=== PATIENT | female | born 1955 | race Two or more races ===

== ENCOUNTER 2018-09-06 07:01 | Day surgery (SDC) | payer OTHER ==
[2018-09-06] MEDS ORDERED: PROPOFOL 40 ML (08:40)
[2018-09-06] MEDS ORDERED: LIDOCAINE 2% (SDV) 5 ML INJ (08:40)
[2018-09-06] MEDS ORDERED: ONDANSETRON 4 MG INJ IV (09:00)
[2018-09-06] MEDS ORDERED: EPHEDrine 25 MG/5 ML SYG (09:12)
== END 2018-09-06 14:32 | disposition home or self-care (01) ==
LOC: GIL 07:01
DX: D50.9 Iron deficiency anemia, unspecified (principal); K64.8 Other hemorrhoids; K57.30 Diverticulosis of large intestine without perforation or abscess without bleeding; K22.2 Esophageal obstruction; E11.9 Type 2 diabetes mellitus without complications; I10 Essential (primary) hypertension; E03.9 Hypothyroidism, unspecified; E78.5 Hyperlipidemia, unspecified
CPT/HCPCS: 43235; 82962

== ENCOUNTER 2018-11-01 09:35 | Day surgery (SDC) | payer OTHER ==
[2018-11-01] MEDS: INDOMETHACIN 50 MG SUPP PR (06:00)
[2018-11-01] MEDS: CIPROFLOXACIN 400 MG in D5W 200 ML IVPB (06:00)
[2018-11-01 10:47] LABS: ADD MAN DIFF? NO
[2018-11-01 10:48] LABS: WHITE BLOOD COUNT 10.4 10^3/ul (4.8-10.8)
[2018-11-01 10:48] LABS: BASOPHILS % 0.4 % (0.0-2.0); EOSINOPHILS # 0.3 10^3/ul (0.0-0.5); EOSINOPHILS % 2.8 % (0.0-7.0); HEMOGLOBIN 11.4 g/dl (12.0-16.0); LYMPHOCYTES # 2.4 10^3/ul (0.8-2.9); LYMPHOCYTES % 23.1 % (15.0-51.0); MEAN CORPUSCULAR HEMOGLOBIN 29.3 pg (29.0-33.0); MEAN CORPUSCULAR HGB CONC 33.5 g/dl (32.0-37.0); MEAN CORPUSCULAR VOLUME 87.4 fl (82.0-101.0); MEAN PLATELET VOLUME 10.8 fl (7.4-10.4); MONOCYTES % 9.2 % (0.0-11.0); NEUTROPHIL # 6.7 10^3/ul (1.6-7.5); NEUTROPHILS % 64.1 % (39.0-77.0); PLATELET COUNT 240 10^3/UL (140-415); RED BLOOD COUNT 3.89 10^6/ul (4.20-5.40); RED CELL DISTRIBUTION WIDTH 13.1 % (11.5-14.5)
[2018-11-01 11:06] LABS: ALANINE AMINOTRANSFERASE 19 IU/L (13-69); ALBUMIN 4.7 g/dl (3.3-4.9); ALBUMIN/GLOBULIN RATIO 1.34; ALKALINE PHOSPHATASE 64 IU/L (42-121); ANION GAP 13 (5-13); ASPARTATE AMINO TRANSFERASE 19 IU/L (15-46); BILIRUBIN,INDIRECT 0.6 mg/dl (0-1.1); BILIRUBIN,TOTAL 0.6 mg/dl (0.2-1.3); BLOOD UREA NITROGEN 20 mg/dl (7-20); CALCIUM 9.4 mg/dl (8.4-10.2); CARBON DIOXIDE 26 mmol/L (21-31); CHLORIDE 107 mmol/L (97-110); Estimated GFR 51 mL/min (>60); GLUCOSE 129 mg/dl (70-220); POTASSIUM 4.1 mmol/L (3.5-5.1); TOTAL PROTEIN 8.2 g/dl (6.1-8.1)
[2018-11-01 11:09] LABS: CREATININE 1.08 mg/dl (0.44-1.00); SODIUM 146 mmol/L (135-144)
[2018-11-01 11:11] LABS: INR 0.92; PROTIME 12.5 Sec (11.9-14.9)
[2018-11-01 11:12] LABS: PARTIAL THROMBOPLASTIN TIME 28.2 Sec (23.0-35.0)
[2018-11-01] MEDS ORDERED: PROPOFOL 20 ML (12:52)
[2018-11-01] MEDS ORDERED: FENTAnyl 50 MCG/ML VIAL (12:52)
[2018-11-01] MEDS ORDERED: MIDAZOLAM 1 MG/ML 2 ML INJ (12:52)
[2018-11-01] MEDS ORDERED: LIDOCAINE 2% (SDV) 5 ML INJ ×2 (12:52→13:11)
[2018-11-01] MEDS ORDERED: ETOMIDATE 20 MG INJ (12:52)
[2018-11-01] MEDS ORDERED: LABETALOL HCL 20MG INJ IV (13:00)
[2018-11-01] MEDS ORDERED: hydrALAzine 20 MG INJ IV (13:00)
[2018-11-01] MEDS ORDERED: MEPERIDINE 25 MG INJ IV (13:00)
[2018-11-01] MEDS: ONDANSETRON 4 MG INJ IV (13:48)
[2018-11-01] MEDS: HYDROmorphONE 1 MG/5 ML IV SYRINGE IV ×2 (13:49→14:00)
[2018-11-01] MEDS: hydrALAzine 20 MG INJ IV (15:24)
[2018-11-01] MEDS: morphine 2 MG INJ IV (15:25)
== END 2018-11-01 17:17 | disposition home or self-care (01) ==
LOC: GIL 09:35 → SDS 09:35 → GIL 17:17
DX: K22.2 Esophageal obstruction (principal); I10 Essential (primary) hypertension; E78.5 Hyperlipidemia, unspecified; E03.9 Hypothyroidism, unspecified; E11.9 Type 2 diabetes mellitus without complications
CPT/HCPCS: 43249; 71045; 74330; 80053; 82962; 85025; 85610; 85730; 93005